=== PATIENT | male | born 1945 | race Caucasian/White ===

== ENCOUNTER 2021-05-07 16:30 | Outpatient (CLI) | payer MEDICARE, OTHER, SELFPAY ==
--- NOTE | 2021-05-07 16:45 | MR_ITS ---
WS: [id number] MRI LEFT SHOULDER HISTORY: M25.512 - Pain in left shoulder, lifting injury 1 month ago. Prior surgery LEFT shoulder. COMPARISON: Radiographs 03/14/2015 TECHNIQUE: Multiplanar sequences of the shoulder joint are submitted. At least 2 anchors are identified in the posterior lateral humeral head. There is also extensive mitr al metallic artifact surrounding the humeral head from prior surgery. Moderate AC joint arthritis. Soft tissue and bone hypertrophy encroaching upon the rotator cuff. Thin margaret of the lateral acromial process with remodeling. There is marked elevation the humeral head abut ting and remodeling the undersurface of the acromion. No os acromion. Biceps tendon is not identified at the bicipital groove. Severe atrophy of the supraspinatus muscle. Complete supraspinatus tendon tear with retraction to the medial humeral head. Infraspinatus and subscapularis tendons and teres minor appear intact. Small am ount of fluid in the subacromial bursa. No labral tear identified. MR/MR shoulder LT wo con* [id number] IMPRESSION: 1. Complete tear with retraction of the supraspinatus tendon. Tendon is retrac luigi to the medial humeral head. 2. Severe fatty replacement supraspinatus muscle. 3. High riding humeral head resulting in remodeling of the acromion. 4. Prior rotator cuff repair. At least 2 anchors are identified in the humeral head. 5. Moderate AC joint arthritis.
== END 2021-05-07 16:31 | disposition home or self-care (01) ==
PROVIDERS: PCP Nurse Practitioner Family; Visit Provider Nurse Practitioner Family
DX: M75.122 Complete rotator cuff tear or rupture of left shoulder, not specified as traumatic (principal); M13.812 Other specified arthritis, left shoulder
CPT/HCPCS: 73221

== ENCOUNTER 2021-07-14 13:47 | Outpatient (CLI) | payer MEDICARE, OTHER, SELFPAY ==
--- NOTE | 2021-07-14 14:30 | MR_ITS ---
WS: [id number] MRI CERVICAL SPINE NONCONTRAST TECHNIQUE: Sagittal T1, T2 and STIR imaging. Axial T2, gradient, and fiesta imaging. CLINICAL INFORMATION: NECK PAIN COMPARISON: None. FINDINGS: Straightening of the normal cervical lordosis. Cord signal is normal. No high-grade central canal hal rowing. Disc bulging worse at C4-5. C2-C3: Normal. C3-C4: Disc osteophyte complex with endplate ridging. Mild left bony foraminal narrowing. Moderate ri ght facet arthropathy. Spinal canal is patent. C4-C5: Disc osteophyte complex with endplate ridging. Moderate facet arthropathy. Moderate left and m ild right bony foraminal narrowing. Tiny shallow central protrusion with slight contact of the cervic al cord. Spinal canal is patent. C5-C6: Disc osteophyte complex with endplate ridging. Small shallow central protrusion with slight co ntact of the cervical cord. Spinal canal is patent. Moderate right and mild left foraminal narrowing. Moderate to advanced facet arthropathy. C6-C7: Disc osteophyte complex endplate ridging eccentric to the left. Severe left bony foraminal hal rowing. Right foramen is patent. Spinal canal is patent. Mild facet arthropathy. C7-T1: Normal. Visualized brain stem structures: Normal. Prevertebral soft tissues: Normal. MR/MR cervical spin wo con* [id number] IMPRESSION: 1. Straightening of the normal cervical lordosis. Cord signal is normal. No hi gh-grade central canal narrowing. 2. Tiny shallow central protrusions C4-C5 and C5-C6 with slight contact of the cervical cord. Spinal canal remains patent. 3. Severe left bony foraminal narrowing C6-7. Recommend correlation for left C 7 nerve root symptoms. 4. Mild to moderate bony foraminal narrowing worse at bilateral C4-5 and right C5-C6. 5. Moderate to advanced facet arthropathy worse at right C3-4 and right C5-C6.
== END 2021-07-14 13:48 | disposition home or self-care (01) ==
PROVIDERS: PCP Nurse Practitioner Family; Visit Provider Orthopaedic Surgery
DX: M47.812 Spondylosis without myelopathy or radiculopathy, cervical region (principal); M50.221 Other cervical disc displacement at C4-C5 level
CPT/HCPCS: 72141